=== PATIENT | male | born 1940 | race Caucasian/White ===

== ENCOUNTER 2018-08-04 13:13 | Emergency (ER) | payer MEDICARE, OTHER ==
[~2018-08-04] VITALS: Ht 165.1 cm; Wt 60.8 kg
[2018-08-04 13:28] VITALS: BP 124/106
--- NOTE | 2018-08-04 13:28 | ED Cough/URI ---
General Chief Complaint: Respiratory Problems Stated Complaint: COPD EXACERBATION Source: patient, EMS Exam Limitations: no limitations History of Present Illness Date Seen by Provider: Aug 04, 2018 Time Seen by Provider: 13:25 Initial Comments 78-year-old white male presents with increasing shortness of breath began this morning. He was discharged from [facility], yesterday for exacerbation COPD. During that hospitalization it was discovered the patient had a bleeding duodenal ulcer. The patient also had a 90 percent occlusion on his cardiac catheter. The patient was placed on aspirin. He was discharged home yesterday. He developed acute respiratory distress this morning precipitating associate director of nursing arrival and initiation of CPAP. Allergies and Home Medications Allergies Coded Allergies: No Known Drug Allergies (Unverified , 08/04/18) Patient Home Medication List Home Medication List Reviewed: Yes Review of Systems Review of Systems Constitutional: No chills, No fever EENTM: No ear pain, No vision loss Respiratory: see HPI, dyspnea on exertion; No hemoptysis; short of breath Cardiovascular: see HPI; No chest pain, No palpitations Gastrointestinal: No abdominal pain, No diarrhea, No nausea, No vomiting Genitourinary: No dysuria, No frequency Musculoskeletal: No back pain Skin: No change in color, No rash Psychiatric/Neurological: No Symptoms Reported Hematologic/Lymphatic: No Symptoms Reported Immunological/Allergic: no symptoms reported Past Juyxqsh-Aelcgd-Albxle Hx Past Med/Social Hx: Reviewed Nursing Past Med/Soc Hx Patient Social History Recent Foreign Travel: No Contact w/Someone Who Travel: No Physical Exam Vital Signs - First Documented 08/04/18 13:28 Temp 96.5 Pulse 71 Resp 18 B/P (MAP) 124/106 (112) Pulse Ox 100 O2 Delivery NIV/CPAP O2 Flow Rate 35.00 Capillary Refill : Height: '" Weight: lbs. oz. kg; BMI Method: General Appearance: WD/WN, mild distress Eyes: Bilateral Eye Normal Inspection HEENT: normal ENT inspection Neck: full range of motion, supple Respiratory: decreased breath sounds Cardiovascular: normal peripheral pulses, regular rate, rhythm Gastrointestinal: normal bowel sounds, non tender, soft Extremities: normal range of motion, non-tender, normal inspection Neurologic/Psychiatric: no motor/sensory deficits, alert, normal mood/affect, oriented x 3 Skin: normal color, warm/dry; No rash Focused Exam Lactate Level 08/04/18 13:15: Lactic Acid Level 2.29*H Lactic Acid Level Laboratory Tests Test 08/04/18 13:15 Lactic Acid Level 2.29 MMOL/L (0.50-2.00) *H Progress/Results/Core Measures Suspected Sepsis SIRS Temperature: Pulse: Respiratory Rate: Laboratory Tests 08/04/18 13:15: White Blood Count 13.8H Blood Pressure / Mean: 08/04/18 13:15: Lactic Acid Level 2.29*H Laboratory Tests 08/04/18 13:15: Creatinine 1.00, INR Comment 1.2, Platelet Count 134, Total Bilirubin 1.0 Results/Orders Lab Results Laboratory Tests Test 08/04/18 13:15 08/04/18 13:16 Range/Units White Blood Count 13.8 H 4.3-11.0 10^3/uL Red Blood Count 3.51 L 4.35-5.85 10^6/uL Hemoglobin 9.9 L 13.3-17.7 G/DL Hematocrit 31 L 40-54 % Mean Corpuscular Volume 87 80-99 FL Mean Corpuscular Hemoglobin 28 25-34 PG Mean Corpuscular Hemoglobin Concent 33 32-36 G/DL Red Cell Distribution Width 18.3 H 10.0-14.5 % Platelet Count 134 130-400 10^3/uL Mean Platelet Volume 10.4 7.4-10.4 FL Neutrophils (%) (Auto) 95 H 42-75 % Lymphocytes (%) (Auto) 2 L 12-44 % Monocytes (%) (Auto) 3 0-12 % Eosinophils (%) (Auto) 0 0-10 % Basophils (%) (Auto) 0 0-10 % Neutrophils # (Auto) 13.1 H 1.8-7.8 X 10^3 Lymphocytes # (Auto) 0.3 L 1.0-4.0 X 10^3 Monocytes # (Auto) 0.4 0.0-1.0 X 10^3 Eosinophils # (Auto) 0.0 0.0-0.3 10^3/uL Basophils # (Auto) 0.0 0.0-0.1 10^3/uL Neutrophils % (Manual) 99 % Monocytes % (Manual) 1 % Polychromasia SLIGHT Poikilocytosis SLIGHT Anisocytosis SLIGHT Britt Cells Crenated Cell SLIGHT Elliptocytes SLIGHT Prothrombin Time 15.3 H 12.2-14.7 SEC INR Comment 1.2 0.8-1.4 D-Dimer 2.97 H 0.00-0.49 UG/ML Sodium Level 142 135-145 MMOL/L Potassium Level 4.2 3.6-5.0 MMOL/L Chloride Level 110 H 98-107 MMOL/L Carbon Dioxide Level 22 21-32 MMOL/L Anion Gap 10 5-14 MMOL/L Blood Urea Nitrogen 34 H 7-18 MG/DL Creatinine 1.00 0.60-1.30 MG/DL Estimat Glomerular Filtration Rate > 60 BUN/Creatinine Ratio 34 Glucose Level 106 H 70-105 MG/DL Lactic Acid Level 2.29 *H 0.50-2.00 MMOL/L Calcium Level 7.7 L 8.5-10.1 MG/DL Corrected Calcium 8.5 8.5-10.1 MG/DL Total Bilirubin 1.0 0.1-1.0 MG/DL Aspartate Amino Transf (AST/SGOT) 21 5-34 U/L Alanine Aminotransferase (ALT/SGPT) 24 0-55 U/L Alkaline Phosphatase 44 40-136 U/L Troponin I 0.050 H <0.028 NG/ML Total Protein 4.4 L 6.4-8.2 GM/DL Albumin 3.0 L 3.2-4.5 GM/DL Blood Gas Puncture Site RIGHT RADIAL Blood Gas Patient Temperature 96.5 Arterial Blood pH 7.46 H 7.37-7.43 Arterial Blood Partial Pressure CO2 32 L 35-45 MMHG Arterial Blood Partial Pressure O2 114 H 79-93 MMHG Arterial Blood HCO3 23 23-27 MMOL/L Arterial Blood Total CO2 23.7 21.0-31.0 MMOL/L Arterial Blood Oxygen Saturation 99 94-100 % Arterial Blood Base Excess -0.9 -2.5-2.5 MMOL/L Test POSITIVE Blood Gas Ventilator Setting NO Blood Gas Inspired Oxygen N/A My Orders Orders - KARIN RHODES MD Cbc With Automated Diff (08/04/18 13:20) Comprehensive Metabolic Panel (08/04/18 13:20) Chest 1 View, Ap/Pa Only (08/04/18 13:20) Ekg Tracing (08/04/18 13:20) Troponin I (08/04/18 13:20) Fibrin Degradation Products (08/04/18 13:20) Ua Culture If Indicated (08/04/18 13:20) Ns Iv 1000 Ml (Sodium Chloride 0.9%) (08/04/18 13:30) Protime With Inr (08/04/18 13:22) Type And Screen (08/04/18 13:22) Rt Request For Service (08/04/18 13:27) Arterial Blood Gas (08/04/18 13:27) Blood Culture (08/04/18 13:28) Lactic Acid Analyzer (08/04/18 13:28) Albuterol/Ipra Inhalation Soln (Duoneb I (08/04/18 13:30) Svn Small Volume Nebulizer (08/04/18 13:28) Manual Differential (08/04/18 13:15) Medications Given in ED Current Medications Medications Dose Ordered Sig/Albert Route Start Time Stop Time Status Last Admin Dose Admin Albuterol/ Ipratropium 3 ml ONCE ONCE INH 08/04/18 13:30 08/04/18 13:31 DC 08/04/18 13:46 3 ML Vital Signs/I&O 08/04/18 08/04/18 13:28 13:28 Temp 96.5 Pulse 71 71 Resp 18 20 B/P (MAP) 124/106 (112) Pulse Ox 100 98 O2 Delivery NIV/CPAP O2 Flow Rate 35.00 Capillary Refill : Progress Note : Time: 15:16 Progress Note The patient's laboratory and radiographic evaluation demonstrated a elevated d-dimer and lack of gas. The patient's hemoglobin was approximately 9 g. The patient remained comfortable on BiPAP with a sat of 99. The family very much wanted the patient to not return to [place]. I initiated an admission here Via [facility] but I do not have an ICU bed available. With the patient's multiple problems I think that is reasonable disposition until several of these issues are better understood and evaluated. Was family's wish that he then be hospitalized at [facility]. Dr. Toscano was kind enough to accept the patient to the ICU at [facility]. Departure Impression Primary Impression: Respiratory failure Qualified Codes: J96.00 - Acute respiratory failure, unspecified whether with hypoxia or hypercapnia Additional Impressions: Anemia Qualified Codes: D64.9 - Anemia, unspecified Coronary artery disease GI bleed Qualified Codes: K26.4 - Chronic or unspecified duodenal ulcer with hemorrhage Elevated d-dimer Elevated lactic acid level Disposition: 02 XFER SHT-TRM HOSP Condition: Unchanged Admissions Decision to Admit Reason: Admit from ER (General) Decision to Admit/Date: Aug 04, 2018 Time/Decision to Admit Time: 15:21 Departure-Patient Inst. Referrals: NO,LOCAL PHYSICIAN (PCP/Family) Primary Care Physician KARIN RHODES MD Aug 04, 2018 13:28
[2018-08-04] MEDS ORDERED: NS IV 1000 ML 1,000 ML IV SCH (13:30)
[2018-08-04] MEDS ORDERED: RT-ALBUTEROL/IPRATROPIUM 3 ML (DUONEB) VIAL INH ONE (13:30)
[2018-08-04 13:32] LABS: ABG BASE EXCESS -0.9 MMOL/L (-2.5-2.5); ABG OXYGEN SATURATION 99 % (94-100); ABG PCO2 32 MMHG (35-45); ABG PH 7.46 (7.37-7.43); ABG PO2 114 MMHG (79-93); ABG TCO2 23.7 MMOL/L (21.0-31.0)
[2018-08-04 13:33] LABS: ALLENS TEST POSITIVE; PATIENT TEMP 96.5; VENTILATOR NO
[2018-08-04 13:33] LABS: BASOPHILS % (AUTO) 0 % (0-10); EOSINOPHILS % (AUTO) 0 % (0-10); HEMATOCRIT 31 % (40-54); HEMOGLOBIN 9.9 G/DL (13.3-17.7); LYMPHOCYTES # (AUTO) 0.3 X 10^3 (1.0-4.0); LYMPHOCYTES % (AUTO) 2 % (12-44); MEAN CORPUSCULAR HEMOGLOBIN 28 PG (25-34); MEAN CORPUSCULAR HGB CONC 33 G/DL (32-36); MEAN CORPUSCULAR VOLUME 87 FL (80-99); MEAN PLATELET VOLUME 10.4 FL (7.4-10.4); MONOCYTES # (AUTO) 0.4 X 10^3 (0.0-1.0); MONOCYTES % (AUTO) 3 % (0-12); NEUTROPHILS # (AUTO) 13.1 X 10^3 (1.8-7.8); NEUTROPHILS % (AUTO) 95 % (42-75); PLATELET COUNT 134 10^3/uL (130-400); RED CELL DISTRIBUTION WIDTH 18.3 % (10.0-14.5); WHITE BLOOD COUNT 13.8 10^3/uL (4.3-11.0)
--- NOTE | 2018-08-04 13:45 | Diagnostic Imaging Report ---
Indication: Short of air. Upright chest shows normal heart size and vascularity. There is obstructive airway disease with no mass or infiltrate seen. There is no effusion or pneumothorax. There is no acute bony abnormality. Impression: COPD. Dictated by: Dictated on workstation # [id number]
[2018-08-04 13:49] LABS: MONOCYTES % (MANUAL) 1 %; NEUTROPHILS % (MANUAL) 99 %
[2018-08-04 13:50] LABS: FIBRIN DEGRADATION PRODUCTS 2.97 UG/ML (0.00-0.49); INR 1.2 (0.8-1.4); POIKILOCYTOSIS SLIGHT; POLYCHROMASIA SLIGHT; PROTHROMBIN TIME PATIENT 15.3 SEC (12.2-14.7)
[2018-08-04 13:51] LABS: ALANINE AMINOTRANSFERASE 24 U/L (0-55); ALKALINE PHOSPHATASE 44 U/L (40-136); ANISOCYTOSIS SLIGHT; BUN/CREATININE RATIO 34; CALCIUM 7.7 MG/DL (8.5-10.1); CARBON DIOXIDE 22 MMOL/L (21-32); CHLORIDE 110 MMOL/L (98-107); CRENATED RBC SLIGHT; ELLIPT/OVALOCYTES SLIGHT; GFR ESTIMATED > 60; GLUCOSE 106 MG/DL (70-105); POTASSIUM 4.2 MMOL/L (3.6-5.0); SODIUM 142 MMOL/L (135-145); TOTAL PROTEIN 4.4 GM/DL (6.4-8.2)
--- NOTE | 2018-08-04 14:35 | NUR ---
Patient is resting comfortably at this time, tolerating bipap well. He advises improvement in shortness of breath. Family remains at the beside at this time.
--- NOTE | 2018-08-04 14:53 | NUR ---
Patient is being transferred to [facility] in [place], family and patient in agreeance with Dr. Ortega plan of care.
--- NOTE | 2018-08-04 15:19 | NUR ---
[facility] contacted for patient transfer.
--- NOTE | 2018-08-04 15:34 | NUR ---
Consent for transfer reviewed with the patient and signed. [facility] enroute for patient transfer.
--- NOTE | 2018-08-04 16:05 | NUR ---
[facility] arrived for transport.
[2018-08-04 16:20] VITALS: BP 128/77
== END 2018-08-04 16:23 | disposition short-term general hospital (02) ==
LOC: ER 13:16
DX: J96.90 Respiratory failure, unspecified, unspecified whether with hypoxia or hypercapnia (principal); D64.9 Anemia, unspecified; I25.10 Atherosclerotic heart disease of native coronary artery without angina pectoris; K92.2 Gastrointestinal hemorrhage, unspecified; R97.1 Elevated cancer antigen 125 [CA 125]; R74.0 Nonspecific elevation of levels of transaminase and lactic acid dehydrogenase [LDH]; J44.1 Chronic obstructive pulmonary disease with (acute) exacerbation; Z95.9 Presence of cardiac and vascular implant and graft, unspecified; Z87.19 Personal history of other diseases of the digestive system
CPT/HCPCS: 36415; 71045; 80053; 82805; 83605; 84484; 85007; 85027; 85379; 85610; 86850; 86900; 86901; 87040; 93005; 96360; 96361; 99291